=== PATIENT | female | born 1980 | race Caucasian/White ===

== ENCOUNTER 2022-01-07 13:51 | Outpatient (CLI) | payer MEDICAID, SELFPAY ==
--- NOTE | 2022-01-07 13:45 | RT.EKG_ITS ---
APPROVED REPORT Exam: Resting ECG Reason for Exam: NPW, BASELINE NEEDED Patient Location: O HR:83 bpm ECG Measurements Heart Rate 83 AXIS VA 162 P 25 QRSd 89 QRS 12 QT 386 T -15 QTc 454 Conclusion Sinus rhythm...normal P axis, V-rate 50- [address] abnormalities
== END 2022-01-07 13:52 | disposition home or self-care (01) ==
LOC: DI.CARD 13:52
PROVIDERS: PCP Family Medicine; Visit Provider Internal Medicine Cardiovascular Disease
DX: I49.9 Cardiac arrhythmia, unspecified (principal)
CPT/HCPCS: 93010

== ENCOUNTER 2023-07-11 15:03 | Emergency (ER) | payer BC, SELFPAY ==
--- NOTE | 2023-07-11 15:00 | RT.EKG_ITS ---
APPROVED REPORT Exam: Resting ECG Reason for Exam: SOB Patient Location: E HR:72 bpm ECG Measurements Heart Rate 72 AXIS NE 167 P 53 QRSd 88 QRS 13 QT 431 T -11 QTc 473 Conclusion Sinus rhythm...normal P axis, V-rate 60- 99 sinus, rhtyhm, normal axis, normal intervals, t wave inversion lead III, consider subtle st segment d epressions V5, V6
[2023-07-11 15:09] VITALS: BP 151/92; PULSE 77; RESP 13; TEMP 36.6; O2SAT 99
[2023-07-11 15:12] VITALS: BP 151/92; PULSE 77; RESP 13; TEMP 36.6; O2SAT 99
[2023-07-11 15:19] VITALS: RESP 24
[2023-07-11] MEDS: Albuterol/Ipratropium 3 ML UPD VIAL UPD (15:29)
[2023-07-11] MEDS: Dexamethasone 10 MG/ML VIAL PO (15:30)
--- NOTE | 2023-07-11 15:32 | ED.GENADUL_ITS ---
Discharge Plan Disposition Patient Disposition: Home Condition: Improving Discharge Details Chief Complaint: SOB Clinical Impression: Cough Primary Care Provider: Naomie Eric ED Provider: Chucho Conway Home Meds and New Rx's Prescriptions: No Action indomethacin 25 mg capsule 25 mg PO TID PRN Rx Instructions: administer with food or milk lorazepam 1 mg tablet 1 mg PO QHS PRN metoprolol succinate 25 mg tablet extended release 24 hr 50 mg PO DAILY albuterol sulfate [ProAir HFA] 90 mcg/actuation HFA aerosol inhaler 2 puff inhalation Q6H PRN triamcinolone acetonide 0.1 % cream 1 applic topical BID PRN lisinopril 20 mg tablet 20 mg PO DAILY omeprazole 20 mg capsule,delayed release(DR/EC) 20 mg PO DAILY benzonatate 100 mg capsule 100 mg PO Q8H PRN Rx Instructions: Can take 2 tabs if needed Discharge Instructions Instructions: Acute Cough (ED) Additional Instructions: Please follow-up with your primary care physician. HPI General Date/Time Provider Initiated Documentation: 07/11/23 15:04 . HPI Narrative: 43-year-old female recent diagnosed with influenza presents with persistent coug h nonproductive intermittently feeling nauseous and vomiting after coughing, no chest pain no leg pain or swelling no recent travel, no history of thromboembolic disease. Was seen at urgent care within the last couple of days and underwent x-ray chest which was negative. Was prescribed Tessalon Perlluisana. Related Data Home Medications Medication Instructions Recorded Confirmed albuterol sulfate 90 mcg/actuation 2 puff inhalation Q6H PRN 11/15/21 07/11/23 aerosol inhaler (ProAir HFA) indomethacin 25 mg capsule 25 mg PO TID PRN 11/15/21 07/11/23 lorazepam 1 mg tablet 1 mg PO QHS PRN 11/15/21 07/11/23 metoprolol succinate 25 mg 50 mg PO DAILY 11/15/21 07/11/23 tablet,extended release 24 hr triamcinolone acetonide 0.1 % 1 applic topical BID PRN 01/07/22 07/11/23 topical cream benzonatate 100 mg capsule 100 mg PO Q8H PRN 07/11/23 07/11/23 lisinopril 20 mg tablet 20 mg PO DAILY 07/11/23 07/11/23 omeprazole 20 mg capsule,delayed 20 mg PO DAILY 07/11/23 07/11/23 release Allergies Allergy/AdvReac Type Severity Reaction Status Date / Time insect venom Allergy swelling Verified 07/11/23 15:32 and burning Tetanus Vaccines and Toxoid Allergy fever and Verified 07/11/23 15:32 very sick acetaminophen AdvReac fever and Verified 07/11/23 15:32 [From Excedrin Migraine] vomiting aspirin AdvReac fever and Verified 07/11/23 15:32 [From Excedrin Migraine] vomiting caffeine AdvReac fever and Verified 07/11/23 15:32 [From Excedrin Migraine] vomiting General Stated Complaint: SOB KENDRICK: 3 Review of Systems Narrative: Review of Systems Constitutional: negative Eyes: negative ENT: negative Cardiovascular: negative Respiratory: Cough Gastrointestinal: negative : negative Musculoskeletal: negative Skin: negative Neurologic: negative Psych: negative Exam Narrative Exam Narrative: Physical Examination General: alert, awake, cooperative, resting comfortably, no acute distress HEENT: normocephalic, atraumatic; PERRL, EOM intact, conjunctiva normal; no nasal discharge; moist mucous membranes, oral and pharyngeal mucosa normal, tolerating secretions Neck: supple, trachea midline; full ROM Chest: normal to inspection Respiratory: normal respiratory effort, speaking in full sentences, clear to auscultation, no wheezing, rales or rhonchi Cardiac: regular rate, regular rhythm, S1S2 intact, no murmurs rubs or gallops GI: abdomen soft, non-tender, non-distended; no palpable mass or hepatosplenomegaly Skin: no lesions, rashes or trauma appreciated Neuro: AAOx3, normal speech, moving all extremities Extremities: No peripheral edema Psych: Appropriate mood and affect Course Vital Signs Vital signs: Vital Signs Temperature 36.6 C 07/11/23 15:09 Pulse 77 07/11/23 15:09 Respiratory Rate 13 07/11/23 15:09 Blood Pressure 151/92 H 07/11/23 15:09 Pulse Oximetry 99 07/11/23 15:09 Temperature 36.6 C 07/11/23 15:12 Temperature Source Temporal Artery Scan 07/11/23 15:12 Pulse 77 07/11/23 15:12 Respiratory Rate 24 07/11/23 15:19 Respiratory Effort Normal 07/11/23 15:19 Respiratory Depth Normal 07/11/23 15:19 Respiratory Pattern Normal 07/11/23 15:19 Blood Pressure 151/92 H 07/11/23 15:12 Blood Pressure Position Sitting 07/11/23 15:12 Pulse Oximetry 99 07/11/23 15:12 Oxygen Delivery Method Room Air 07/11/23 15:12 Oxygen Flow Rate 0 07/11/23 15:12 Pain Level 0 07/11/23 15:12 Medical Decision Making 43-year-old female recent diagnosed with influenza presents with persistent cough nonproductive, intermittent nausea and vomiting after coughing, chest congestion; patient resting comfortably no acute distress hemodynamically stable afebrile nontoxic not hypoxic, EKG normal sinus rhythm normal axis T wave inversion lead III. No history of cardiac disease or thromboembolic disease. Negative chest x-ray at urgent care within the last couple of days, discharge, Lina Moerno. Likely resolving viral illness lower suspicion for bacterial pneumonia. Low suspicion for ACS PE or aortic pathology. Trial of nebulized albuterol/ipratropium, steroids in the form of dexamethasone, likely home with close follow 16: 08 resting actively no acute distress. Quality:SDOH Health Related Social Needs: No Data to Display PFSH All Active Problems (Updated 07/11/23 @ 16:09 by Chucho Conway MD) Cough (Acute) Other chest pain (Acute) Palpitations (Acute) Medical History Asthma Family history of breast cancer Goiter Hypertensive disorder Insomnia Psoriasis Seizure Severe obesity Tension type headache Vitamin D deficiency Family History Mother Breast cancer Hypertension Paternal Aunt Breast cancer Social History Smoking/Tobacco Use Status: Never Smoking risk assessment performed?: Yes Alcohol Intake: never Drug use: Never Substance use type: does not use
[2023-07-11 16:13] VITALS: BP 154/89; PULSE 74; RESP 12; O2SAT 96
== END 2023-07-11 16:14 | disposition home or self-care (01) ==
PROVIDERS: Emergency Provider Emergency Medicine; PCP Registered Nurse
DX: R05.1 Acute cough (principal); R06.02 Shortness of breath; R11.10 Vomiting, unspecified; R42 Dizziness and giddiness; I10 Essential (primary) hypertension
CPT/HCPCS: 93005; 94640; 99283; 93010; J1100; J7620

== ENCOUNTER 2023-09-16 15:40 | Outpatient (CLI) | payer BC, SELFPAY ==
--- NOTE | 2023-09-16 12:45 | DI.RAD_ITS ---
Exam(s) XR SHOULDER RT COMPLETE 2+V EXAM: XR SHOULDER RT COMPLETE 2+V CLINICAL HISTORY: evaluation of shoulder. TECHNIQUE: 2D digital imaging was performed of the right shoulder. Two images were obtained. Grash ey and axillary views were obtained. COMPARISON: No exams were available for comparison FINDINGS: BONES: No acute fracture is present. No bony destructive lesion is seen. Postsurgical changes with wi dening of the acromioclavicular joint. There is a orthopedic device in the humeral head. JOINTS: No dislocation present. Mild spurring is seen at the inferior aspect of the glenohumeral join t. SOFT TISSUE: The visualized lungs are clear. IMPRESSION: Findings in the right shoulder as described above. DATA REPOSITORY: RADIATION DOSE DELIVERED:
--- NOTE | 2023-09-16 12:45 | DI.RAD_ITS ---
Exam(s) XR SHOULDER LT COMPLETE 2+V EXAM: XR SHOULDER LT COMPLETE 2+V CLINICAL HISTORY: evaluation of left shoulder. TECHNIQUE: 2D digital imaging was performed of the left shoulder. Two images were obtained. Grashe y and axillary views were obtained. COMPARISON: No exams were available for comparison FINDINGS: BONES: No acute fracture is present. No bony destructive lesion is seen. JOINTS: No dislocation present. The joint spaces appear well maintained. SOFT TISSUE: There is a curvilinear density adjacent to the greater tuberosity. The underlying bone is intact. This likely reflects calcific tendinitis. The visualized lungs are clear. IMPRESSION: Findings most suggestive of calcific tendinitis. Fracture is considered less likely. DATA REPOSITORY: RADIATION DOSE DELIVERED:
== END 2023-09-16 15:41 | disposition home or self-care (01) ==
LOC: DIORS 15:40
PROVIDERS: PCP Registered Nurse; Visit Provider Student in an Organized Health Care Education/Training Program
DX: M25.511 Pain in right shoulder (principal); M25.512 Pain in left shoulder
CPT/HCPCS: 73030

== ENCOUNTER → 2023-10-15 01:36 | Outpatient (CLI) | payer BC, SELFPAY ==
--- NOTE | 2023-10-15 11:00 | DI.MRI_ITS ---
Exam(s) MR UPPER JOINT LT WO EXAM: MR UPPER JOINT LT WO CLINICAL HISTORY: L SHOULDER PAIN, calcific tendinitis lt shoulder, M75.32. TECHNIQUE: Multiplanar multisequence MRI was performed. COMPARISON: CR XR SHOULDER LT COMPLETE 2+V from 09/16/2023 FINDINGS: BONES: There is no fracture or contusion pattern. JOINTS: There are degenerative changes seen at the acromioclavicular joint. There is marrow edema se en in the distal clavicle but no fracture is identified. The glenohumeral joint is normal. TENDONS: Supraspinatus: Mild tendinosis of the supraspinatus tendon but no evidence of a tear. Infraspinatus: Unremarkable. Subscapularis: Unremarkable. [place]: Unremarkable. Biceps and [place]: Unremarkable. MUSCLES: Unremarkable. GLENOID LABRUM: Unremarkable on this noncontrast examination. SOFT TISSUES: Unremarkable. LIGAMENTS: Unremarkable. OTHER: Subacromial and subdeltoid bursae are unremarkable. IMPRESSION: 1. Tendinosis of the supraspinatus tendon. 2. No evidence of a rotator cuff tear or labral tear on this noncontrast examination. 3. Degenerative changes seen at the acromioclavicular joint. 4. Marrow edema seen in the distal clavicle which may reflect degenerative change or contusion. No f ractures identified. DATA REPOSITORY:
== END ==
PROVIDERS: PCP Registered Nurse; Visit Provider Student in an Organized Health Care Education/Training Program
DX: M75.32 Calcific tendinitis of left shoulder (principal)
CPT/HCPCS: 73221

== ENCOUNTER 2024-05-25 15:53 | Outpatient (CLI) | payer BC, SELFPAY ==
--- NOTE | 2024-05-25 13:00 | DI.RAD_ITS ---
Exam(s) XR SHOULDER LT 1V EXAM: XR SHOULDER LT 1V CLINICAL HISTORY: F/U LEFT SHOULDER. TECHNIQUE: 2D digital imaging was performed of the left shoulder. One images were obtained. AP vie ws were obtained. COMPARISON: CR XR SHOULDER LT COMPLETE 2+V from 09/16/2023 FINDINGS: This is a limited examination with a single AP view of the left shoulder. The glenohumeral joint appears well maintained. Mild arthrosis of the acromioclavicular joint is not ed. There is calcification adjacent to the greater tuberosity suggestive of calcific tendinitis. IMPRESSION: 1. This is a limited examination. 2. Calcific tendinitis. 3. Mild arthrosis of the acromioclavicular joint. DATA REPOSITORY: RADIATION DOSE DELIVERED:
== END 2024-05-25 15:54 | disposition home or self-care (01) ==
LOC: DIORS 15:54
PROVIDERS: PCP Registered Nurse; Visit Provider Student in an Organized Health Care Education/Training Program
DX: M75.32 Calcific tendinitis of left shoulder (principal)
CPT/HCPCS: 73020

== ENCOUNTER 2024-06-18 10:38 | Day surgery (SDC) | payer BC, SELFPAY ==
[2024-06-18] VITALS (24 sets, daily range): BP systolic 132–154; BP diastolic 81–97; PULSE 76–110; RESP 8–22; TEMP 36.2–36.8; O2SAT 95–100; BMI 34.4
--- NOTE | 2024-06-18 07:13 | W.PM.DSUDISC ---
Date of service: 06/18/24 Discharge Plan Disposition Patient Disposition: Home Condition: Stable Discharge Details Reason For Visit: RTC REPAIR Attending Provider: Zeb Collier Primary Care Provider: Naomie Eric Home Meds and New Rx's Prescriptions: New naproxen 250 mg tablet 250 - 500 mg PO BID PRN (Reason: moderate pain and swelling) Qty: 40 0RF oxycodone 5 mg tablet 5 - 10 mg PO .q4-6h MDD 30 mg PRN (Reason: severe pain) Qty: 18 0RF Continued citalopram 10 mg tablet 10 mg PO DAILY metoprolol succinate 25 mg tablet extended release 24 hr 50 mg PO DAILY albuterol sulfate [ProAir HFA] 90 mcg/actuation HFA aerosol inhaler 2 puff inhalation Q6H PRN triamcinolone acetonide 0.1 % cream 1 applic topical BID PRN lisinopril 20 mg tablet 10 mg PO DAILY lorazepam 1 mg tablet 0.5 mg PO QHS PRN mecobalamin (vitamin B12) 1,000 mcg tablet,chewable 1,000 mcg PO DAILY omeprazole 20 mg capsule,delayed release(DR/EC) 20 mg PO DAILY Discharge Instructions Additional Instructions: Surgery: Left shoulder arthroscopy with biceps tenodesis, extensive debridement (including calcium removal), subacromial decompression, distal clavicle excision, and rotator cuff repair (closure of calcium defect) 06/18/24 Activity: For 6 weeks, you should keep your arm at your side in a neutral position at all times except for physical therapy. Do not try to lift or raise your arm using your own muscles. You should use the sling whenever you are out of the house. At home it is best to remove the sling and rest the arm on a pillow at your side or support the operative side with your other hand. You may allow the arm to dangle at your side. A physical therapy prescription will be sent electronically to begin in about 3 weeks. Standard protocol. Prescriptions: Naproxen 250 mg take 1-2 every 12 hours with a meal as needed for moderate pain Oxycodone 5 mg take 1-2 every 4-6 hours as needed for severe pain You may use [id number] Tylenol (acetaminophen) as needed for mild pain. These pain medications may be taken all at once or in different combinations as needed. Also, recommend Colace (docusate) as a stool softener as surgery and pain medicine cause constipation. You may try [id number] diphenhydramine (Benadryl) 25-50 mg nightly as a sleep aid Dressings: Remove shoulder bandage after 3 days. Leave the sticky Steri-Strips in place until they fall off or remove them after you shower. Cover the incisions with Band-Aids or leave them open to air. You may shower after 5 days. Follow-up: 10-[address] Collier You may take off the leg compression stockings this evening at home. You may also leave them on a few days longer if you have a history of leg swelling or edema. Let us know right away if you develop any redness, drainage, fevers, chest pain, or trouble breathing. Do not drink alcohol or drive for at least 24 hours after anesthesia. Please call the office during business hours with any questions or concerns. 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
--- NOTE | 2024-06-18 07:31 | W.PM.OP ---
Operative Note Operative Note PRE-OP DIAGNOSIS: Left: 1. Calcific tendinitis 2. LHB tendinopathy 3. Bursitis 4. Distal clavicle osteolysis POST-OP DIAGNOSIS: same PROCEDURE: Left: 1. Rotator cuff repair, CPT# 17170. This involved repair of the supraspinatus using suture to close the calcium deposit defect. 2. Arthroscopic biceps tenodesis, CPT# 96843. This involved arthroscopically suturing and reattaching the long head of the biceps tendon to the proximal humerus at the superior margin of the bicipital groove with a screw at the correct tension. 3. Extensive debridement, CPT# 58799. This involved using arthroscopic hand instruments, power instruments, and radiofrequency instruments to release the long head of the biceps tendon and debride areas of anterior labral tearing including releasing the [facility] L anterior capsular labral complex as well as involved in the SLAP tear. Also involve removing calcium from the supraspinatus tendon centrally. 4. Subacromial decompression with partial acromioplasty, CPT# 55280. This involved using arthroscopic power instruments and a radiofrequency wand to complete a bursectomy and smooth the undersurface of the acromion. 5. Arthroscopic distal clavicle excision, CPT# 39055. This involved arthroscopically exposing the underside of the acromioclavicular joint, smoothing out bone spurs, and removing approximately a few millimeters of the abnormal distal clavicle and some corresponding bone on the medial acromion so there is no bone left engaging. The assistant import manager was medically required in order to help assist in techniques above, which require positioning the arm, holding the arthroscope, and manipulating multiple instruments and sutures at the same time. This cannot be done without the help of an experienced assistant import manager. SURGEON: Zeb Collier KILN CLEANER: Olivia Warren ANESTHESIA TYPE: Local By Surgeon, General LMA/ETT and Primary Nerve Block Refer to Anesthesia Record ESTIMATED BLOOD LOSS: 5 PATHOLOGY: none sent COMPLICATIONS: None Patient was transported to: PACU Patient's condition: stable Implants: Arthrex: 4.75mm SwiveLocks x 1 Indications: The patient was diagnosed with the above conditions and appropriately indicated for surgical intervention. Please see complete medical record for details. Findings: Exam under anesthesia: Full range of motion, no instability Glenohumeral joint: Mild anterior synovitis, glenohumeral cartilage intact, rotator cuff articular margin intact, subscapularis intact. Moderate biceps injection synovitis superior aspect bicipital groove. Biceps tendon otherwise intact. Unstable biceps anchor SLAP tear likely due to a Kezia complex anterior glenoid labral deficiency with the capsular labral ligamentous complex mobile even more than usual on probing included on testing the biceps anchor and the more inferior labrum. Subacromial space: Moderate bursitis, hemorrhagic rotator cuff injection, inflamed AC joint with abnormal softening and early widening of the distal clavicle. Largely intact rotator cuff with thinning over the central supraspinatus calcium deposit. Procedure Description: In the operating room, general anesthesia was induced. Bilateral shoulders were examined. The patient was positioned in the beachchair position. All bony prominences were well-padded. Preoperative antibiotics were administered. The shoulder was prepped and draped in the usual sterile fashion. The correct patient, procedure, and side of the procedure were all verified prior to incision. Starting through the posterior portal a standard complete diagnostic arthroscopy was performed of the glenohumeral joint including inspection of the long head of the biceps, anterior and superior labrum, subscapularis tendon, supraspinatus and infraspinatus tendons, and axillary recess. The glenoid and humeral head cartilage as well as the posterior labrum were inspected from an anterior viewing portal. Significant findings and interventions noted above. An all-arthroscopic suprapectoral biceps tenodesis was performed through an anterior portal using a Loop N Tack method with a SutureTape FiberLink cinched around and through the tendon. The biceps was tenotomized from the labrum and fixated with a suture anchor at the superior margin of the bicipital groove. The knotless repair suture was shuttled around the tendon stump back through the anchor eyelet mechanism and tensioned adding excellent additional security to the repair. Starting through the posterior portal, the arthroscope was directed into the subacromial space. A lateral 50 yard line lateral portal was created. A combination of power instruments and a radiofrequency ablator were used to debride bursitis anteriorly, posteriorly, and laterally as well as expose and smooth bone spurring on the undersurface of the acromion. The coracoacromial ligament was partially released. The bursectomy was completed viewing laterally and working from posteriorly and the rotator cuff was thoroughly inspected with findings noted above. The anterior portal was redirected towards the undersurface of the AC joint. A shaver and electrocautery device were used to clear soft tissue from the undersurface of the AC joint. The distalmost few millimeters of the distal clavicle soft abnormal bone was then removed and smoothed. Care was taken to alternate portals l to ensure that proper amount of bone was removed and there was no engaging bone left behind. Corresponding medial acromion bone was resected as well and contoured underneath into the acromioplasty. The supraspinatus was thoroughly examined. A Kristi cannula was inserted laterally for best exposure of the rotator cuff. The arm was positioned targeting the central aspect of the supraspinatus area of imaging calcium deposit. There was some thinning of the bursal layers of tissue here and most apparent hemorrhagic injection throughout the rotator cuff. The cuff grasper and blunt probes were used to squeeze the rotator cuff, but calcium did not express. An 18-gauge needle from straight superior was then directed into rotator cuff at this site and used to trephinate the small area of concern. The cuff grasper was then used to squeeze a small amount of calcium out of the tendon. Additional probing and pressure did not reveal any additional calcium. The thinning was amenable to a suture [id number] repair as it was longitudinal in line with the fibers. The 90 degree lasso single portal technique was done show lighting a suture tape from anterior to posterior moderate thickness about the tear and secured with [facility] arthroscopic knots. The deficit was closed nicely the remainder of the tendon was intact. The shoulder was drained of arthroscopic fluid. All portal sites were copiously irrigated. These incisions were closed using 3-0 Monocryl in a buried fashion and then covered with Mastisol, Steri-Strips, Xeroform, dry gauze, and ABDs. The dressings were covered and secured with Medipore tape. The operative extremity was placed into a sling for immobilization. The patient awoke from anesthesia without complication and was transferred to the recovery room in a stable condition. Date of Procedure: 06/18/24
[2024-06-18] MEDS: Lactated Ringers 1,000 ML 30 ML IV (11:48)
--- NOTE | 2024-06-18 11:52 | W.ANESPRE ---
General Info Date of Service Date Performed: 06/18/24 Height: 5 ft 4 in Weight: 91.2 kg Body Mass Index (BMI): 34.4 Surgical Procedure: Operation Date: 06/18/24 12:55 Proposed Procedure Side Surgeon p Shoulder Rotator Cuff Arthroscopic w/Extensive Debridement, Biceps Tenodesis, Subacromial Decompression, Distal Clavicle Excision Left Zeb Collier MD Meds Allergies and Home Medications Allergies Allergy/AdvReac Type Severity Reaction Status Date / Time insect venom Allergy swelling Verified 06/18/24 11:18 and burning Tetanus Vaccines and Toxoid Allergy fever and Verified 06/18/24 11:18 very sick acetaminophen (From Excedrin AdvReac fever and Verified 06/18/24 11:18 Migraine) vomiting aspirin (From Excedrin AdvReac fever and Verified 06/18/24 11:18 Migraine) vomiting caffeine (From Excedrin AdvReac fever and Verified 06/18/24 11:18 Migraine) vomiting Home Medication ?Medication ?Instructions ?Recorded albuterol sulfate 90 mcg/actuation 2 puff inhalation Q6H PRN 11/15/21 aerosol inhaler (ProAir HFA) metoprolol succinate 25 mg 50 mg PO DAILY 11/15/21 tablet,extended release 24 hr triamcinolone acetonide 0.1 % 1 applic topical BID PRN 01/07/22 topical cream omeprazole 20 mg capsule,delayed 20 mg PO DAILY 07/11/23 release lisinopril 20 mg tablet 10 mg PO DAILY 08/20/23 lorazepam 1 mg tablet 0.5 mg PO QHS PRN 08/20/23 mecobalamin (vitamin B12) 1,000 1,000 mcg PO DAILY 08/20/23 mcg chewable tablet citalopram 10 mg tablet 10 mg PO DAILY 05/25/24 Current Visit Medications: Current Medications Generic Name Dose Route Start Last Admin Trade Name Freq PRN Reason Stop Dose Admin Ringer's Solution 1,000 mls @ 30 mls/hr 06/18/24 06:00 06/18/24 11:48 IV 06/18/24 23:59 30 mls/hr INFUSION JAMARI Administration Cefazolin Sodium/Dextrose 2 gm in 50 mls @ 100 mls/hr 06/18/24 06:00 Ancef Duplex IVPB 06/18/24 23:59 PREOP JAMARI Tranexamic Acid/Sodium Chloride 1,000 mg in 100 mls @ 600 mls/hr 06/18/24 06:00 IVPB 06/18/24 23:59 PREOP JAMARI IV Miscellaneous Supplies 1 each 06/18/24 06:00 Iv Access IV 06/18/24 23:59 DIRECTED JAMARI Oxycodone HCl 0 mg 06/18/24 07:13 Oxycodone 5 Mg Tab PO 07/18/24 07:12 Q3H PRN PRN Pain Sodium Chloride 0 ml 06/18/24 06:00 Normal Saline Flush 10 Ml Syr IV 06/18/24 23:59 PRN PRN Sodium Chloride 0 ml 06/18/24 06:00 Normal Saline 10 Ml Vial IJ 06/18/24 23:59 DIRECTED PRN Sterile Water 0 ml 06/18/24 06:00 Water,Injection,Sterile 10 Ml Vial IJ 06/18/24 23:59 DIRECTED PRN PFSH Active Problems Active Problems: Problem Status Onset Code Tendinopathy of left biceps tendon Acute M67.922 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 Psoriasis Asthma Hypertensive disorder Insomnia Tension type headache Severe obesity Vitamin D deficiency Goiter Surgical History Surgical History History of arthroscopy of right shoulder Tobacco Smoking/Tobacco Use Status: Never Alcohol Alcohol Intake: never Substance Use Substance use: Never Substance use type: does not use Vital Signs and Lab Results Vital Signs Most Recent Vital Signs in EMR: Most Recent Vital Signs Temp Pulse Resp BP Pulse Ox 36.3 C L 86 20 144/97 H 100 06/18/24 11:14 06/18/24 11:14 06/18/24 11:14 06/18/24 11:14 06/18/24 11:14 Lab Results Blood Type / Crossmatch: No Data to Display Complete Blood Count: No Data to Display Complete Metabolic Panel: No Data to Display Liver Function Panel: No Data to Display Coagulation Panel: No Data to Display Cardiac Panel: No Data to Display Arterial Blood Gas: No Data to Display Venous Blood Gas: No Data to Display Pancreas Panel: No Data to Display Thyroid Panel: No Data to Display Infectious Disease: No Data to Display Blood Cultures: No Data to Display Toxicology Panel: No Data to Display Panel: No Data to Display Anesthesia Assessment and Plan Anesthesia History Personal History: Delayed Emergence Family History: No Family History of Anesthesia Complications Exercise Tolerance Exercise Tolerance: Metabolic Equivalents>4 Pertinent Negatives Pertinent Negatives: No Symptoms of GERD Cardiac & Pulmonary Exam Cardiac Exam: Normal S1/S2 Heart Sounds Pulmonary Exam: Clear Bilateral Breath Sounds Implantable Cardiac Device Does patient have a Pacemaker or an ICD?: No Airway Exam Known Difficult Airway: No Mallampati Class: 2 Mouth Opening: Normal (> 3cm) Thyromental Distance: Greater than 3 cm Neck Range of Motion: Full ROM Neck Circumference: Normal Teeth Condition: Normal Dentition ASA Classification ASA Score: ASA 2 Emergency Case?: No NPO Status NPO Status: NPO Clears >2 hours, Solids >8 hours Status Status: History of Hysterectomy Anesthesia Plan Resuscitation Status: Full Code Anesthesia Technique: General Anesthesia Airway Planned: Endotracheal Tube Pain Management: Surgeon and patient request nerve block Monitors Used: Standard Monitors
[2024-06-18] MEDS: ceFAZolin 2 GM/50 ML BAG IVPB (13:43)
[2024-06-18] MEDS: TRANEXAMIC ACID/SOD. CHL. 1,000 MG/100 ML BAG 600 MG IVPB (13:49)
--- NOTE | 2024-06-18 14:12 | W.ANESNERVE ---
Nerve Block Single Injection Procedure Date and Time Date Performed: 06/18/24 Procedure Start: 12:50 Location Where Procedure Performed Procedure Location: Day Surgery Unit Reason Performed: Postoperative Analgesia Requesting Provider: Zeb Collier Timeout Performed Timeout Performed: Yes Monitoring Used ECG, Blood Pressure and SpO2 Sterility Sterility: Hand Hygiene, Surgical Cap, Surgical Mask, Sterile Gloves and Chlorhexidine Sedation Given During Procedure Sedation Given (Indicate Dose Given): Versed IV Dose:: 2mg Patient Mental Status Patient Mental Status: Awake Nerve Block 1st Nerve Block: Laterality: Left Block Type: Interscalene (Low) Ultrasound Image Saved?: Yes Needle / Catheter Used: 80mm SonoPlex II Local Anesthetic Bolus (Indicate Dose Given): Lidocaine used for local infiltration of skin, Injected in 3-5ml increments after negative blood aspiration, Bupivacaine 0.5% Dose:: 10mL and Exparel Dose:: 10mL Additives (Indicate Dose Given): None Ultrasound: Sterile probe cover and gel used Nerve Stimulator: Primary Nerve Stimulator Technique and No twitch or parasthesia noted < 0.5 mA Paresthesia: Left Paresthesia Duration: Transient Procedure Tolerated: No Complications and Patient tolerated well Procedure Outcome: Successful Procedure Comment: LA to skin, first attempt needle advanced and patient noted to have paresthesia with no response to nerve stimulator. Procedure immediately paused and paresthesia resolved, needle repositioned and attempted to move into space with elicited paresthesia again and needle removed. Second area of LA applied to skin and needle advanced without discomfort. See nerve block above for block details. Patient tolerated procedure well. Performed By: Adeola Juan
[2024-06-18] MEDS: Bupivacaine 0.25% Pres-Free W/EPI 30 ML VIAL (14:23)
[2024-06-18] MEDS: EPINEPHrine 10 MG/10 ML ML (14:24)
--- NOTE | 2024-06-18 16:32 | W.ANESPOSTOP ---
Postoperative Evaluation Date, Time and Location Date Performed: 06/18/24 Time Performed: 16:21 Patient Location: Day Surgery Unit Vital Signs Most Recent Imported Vital Signs: Most Recent Vital Signs Temp Pulse Resp BP Pulse Ox 36.5 C 81 18 136/84 99 06/18/24 16:01 06/18/24 16:01 06/18/24 16:01 06/18/24 16:01 06/18/24 16:01 Pain Score Most Recent Pain Score: Most Recent Pain Score Pain Level 0 06/18/24 15:58 Assessment Mental Status: Awake (Alert & Oriented to Patient Baseline) Airway and Respiratory Function: Patent airway with normal (patient baseline) respiratory exam (Reports some SOB, or feeling like she cant take a full breath. VSS with SPO2 99-100% and on RA. I believe either phrenic involvement or how she feels after GA. She reports this happens every time, which makes me lean away from GA. We discussed sx and symptoms for activating EMS (continued below)) Cardiovascular Function: Hemodynamically Stable Hydration Status: Adequately Hydrated Nausea & Vomiting: No Nausea or Vomiting Pain: Pt. Denies Any Pain Peripheral Nerve Block: Regional nerve block not resolved at time of post operative discharge Postoperative Comments:: if she becomes concerned after d/c home. I am not concerned at this time.
--- NOTE | 2024-06-21 13:00 | ANES_ITS ---
Date of service: 06/21/24 Time of Service: 13:00 Anesthesia Note Report Anesthesia Note: Called Amarilis on the phone and discussed her sensation of SOB since DOS s/p nerve block. Patient reports her SOB sensation has not worsened but has also not improved. Amarilis feels her block wore off already, but is not having any discomfort or taking any narcotics. Informed patient that the Exparel (long- acting LA) may still be working to control her pain, but also impacting her ability to take a deep breath. Educated patient she may present to the local ED for evaluation if there is concern or worsening of symptoms. Plan to call Amarilis tomorrow to check in on her symptoms.
== END 2024-06-18 17:31 | disposition home or self-care (01) ==
LOC: SUR 10:38
PROVIDERS: PCP Registered Nurse; Visit Provider Student in an Organized Health Care Education/Training Program
PROC: (CPT 29827; principal; 2024-06-18 12:45)
DX: M75.31 Calcific tendinitis of right shoulder (principal); M75.21 Bicipital tendinitis, right shoulder; M75.51 Bursitis of right shoulder; M89.511 Osteolysis, right shoulder; M67.922 Unspecified disorder of synovium and tendon, left upper arm; M89.512 Osteolysis, left shoulder; M75.32 Calcific tendinitis of left shoulder; G89.18 Other acute postprocedural pain
CPT/HCPCS: 29827; 29828; 29823; 29826; 29824; 64415; J0131; J0665; J0666; J0690; J1100; J1885; J2250; J2371; J2405; J2704; J3010; J3475